=== PATIENT | male | born 1985 | race Caucasian/White ===

== ENCOUNTER 2017-07-01 19:00 | Emergency (ER) | payer SELFPAY ==
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
[2017-07-01 20:11] VITALS: BP 118/68
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
--- NOTE | 2017-07-02 13:33 | Diagnostic Imaging Report ---
IRAIDA MONGE [facility] [address] [facility] [address] [place], [place]. [address] Report Submission Date: Jul 01, 2017 7:49:11 PM CDT Patient Study Name: NIRU FRANKLIN Date: Jul 01, 2017 7:31:41 PM CDT Modality Type: CR Gender: M Description: CHEST : 87 Institution: [facility] Physician: IRAIDA MONGE Examination: PA and lateral chest. History: Evaluate lung oh. Findings: PA lateral chest demonstrate a normal cardiac and mediastinal silhouette. No focal infiltrate. No blunting of the costophrenic margins. Osseous structures are appropriate for age. Bilateral nipple rings. Impression: No acute pulmonary process. Electronically signed on Jul 01, 2017 7:49:11 PM CDT by: Chris PLASENCIA
== END 2017-07-01 20:10 | disposition home or self-care (01) ==
LOC: ED 19:00
DX: M25.512 Pain in left shoulder (principal); V89.2XXA Person injured in unspecified motor-vehicle accident, traffic, initial encounter
CPT/HCPCS: 71020; 73030; 99283

== ENCOUNTER 2017-07-06 19:06 | Emergency (ER) | payer SELFPAY ==
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
[2017-07-06 20:22] VITALS: BP 132/79
--- NOTE | 2017-07-07 05:33 | Diagnostic Imaging Report ---
LISSETTE TUTTLE [facility] [address] [address] Report Submission Date: Jul 06, 2017 8:01:11 PM CDT Patient Study Name: NIRU FRANKLIN Date: Jul 06, 2017 7:47:43 PM CDT Modality Type: CR Gender: M Description: SHOULDER : 87 Institution: [facility] Physician: LISSETTE TUTTLE Examination: Plain film shoulder History: Discomfort Comparison exams: None provided Findings: 2 views of the shoulder demonstrate normal cortical margins. No evidence for fracture or dislocation. No soft tissue abnormality Impression: No acute osseous process. Electronically signed on Jul 06, 2017 8:01:11 PM CDT by: Chris PLASENCIA
== END 2017-07-06 20:20 ==
LOC: ED 19:06
DX: M25.511 Pain in right shoulder (principal)
CPT/HCPCS: 73030; 99283

== ENCOUNTER 2017-08-07 16:08 | Emergency (ER) | payer SELFPAY ==
[2017-08-07 16:47] LABS: BASOPHILS % 0.6 (0.0-1.5); EOSINOPHILS % 1.7 % (0.0-6.8); MEAN CORPUSCULAR HEMOGLOBIN 29.2 pg (28.0-34.0); MEAN CORPUSCULAR VOLUME 85.2 fl (80.0-100.0); MONOCYTES % 3.2 % (0.0-11.0)
[2017-08-07] MEDS ORDERED: INSULIN REGULAR, HUMAN 100 UNIT/ML 3ML VIAL IV ONE (16:50)
[2017-08-07] MEDS ORDERED: 0.9 % SODIUM CHLORIDE 1,000 ML IV ONE ×2 (16:50→16:51)
[2017-08-07] MEDS ORDERED: INSULIN REGULAR, HUMAN 100 UNIT/ML 3ML VIAL ONE (16:51)
[2017-08-07 16:57] LABS: eGFR (African) > 60; eGFR (Non-African) > 60
--- NOTE | 2017-08-07 17:07 | ED Physician Documentation ---
General Adult - HISTORIAN Historian: patient, friend - HPI Stated Complaint: Urinary Frequency Chief Complaint: Male Genitourinary Problems Additional Information: dysuria frequency xs soda occ dizziness Onset: days ago (4-5) Timing: worse Severity: moderate Further Comments: yes (prev tx diabetes--pcp took pt off metformin) - ROS CONST: weakness EYES/ENT: denies: problems with vision (slight blur at times) CVS/RESP: none GI/: other (frfequent urination) MS/SKIN/LYMPH: none NEURO/PSYCH: dizziness. denies: headache, fainting, difficulty walking, difficulty with speech - PAST HX Past History: other (DM LO THRYOID ASTHMA) Surgeries/Procedures: cholecystectomy, other (vasectomy) Allergies/Adverse Reactions: Allergies Allergy/AdvReac Type Severity Reaction Status Date / Time No Known Allergies Allergy Verified 08/07/17 16:22 Home Medications: Ambulatory Orders Medication Instructions Recorded Levothyroxine Sodium [Synthroid] 150 mcg PO DAILY 07/06/17 - SOCIAL HX Smoking History: non-smoker Alcohol Use: none Drug Use: none - FAMILY HX Family History: No - VITAL SIGNS Vital Signs: Vital Signs Temp Pulse Resp BP Pulse Ox 97.1 F L 91 H 18 138/65 97 08/07/17 16:10 08/07/17 16:10 08/07/17 16:10 08/07/17 16:10 08/07/17 16:10 - REVIEWED ASSESSMENTS Nursing Assessment Reviewed: Yes Vitals Reviewed: Yes ED Results Lab/Radiology - Lab Results Lab Results: Lab Results 08/07/17 08/07/17 16:40 16:40 WBC 9.70 K/ul K/ul (4.00-12.00) RBC 4.64 M/ul M/ul (3.90-5.20) Hgb 13.5 g/dL g/dL (12.0-18.0) Hct 39.5 % % (37.0-53.0) MCV 85.2 fl fl (80.0-100.0) MCH 29.2 pg pg (28.0-34.0) MCHC 34.3 g/dL g/dL (30.0-36.0) RDW 12.8 % % (11.3-14.3) Plt Count 199 K/mm3 K/mm3 (130-400) Neut % (Auto) 72.6 % % (39.0-79.0) Lymph % (Auto) 21.0 % % (16.0-50.0) [place] % (Auto) 3.2 % % (0.0-11.0) Eos % (Auto) 1.7 % % (0.0-6.8) Baso % (Auto) 0.6 (0.0-1.5) Neut # (Auto) 7.0 # k/uL # k/uL (1.4-7.7) Lymph # (Auto) 2.0 # k/uL # k/uL (0.6-4.0) [place] # (Auto) 0.3 # k/uL # k/uL (0.0-0.9) Eos # (Auto) 0.2 # k/uL # k/uL (0.0-0.6) Baso # (Auto) 0.1 # k/uL # k/uL (0.0-0.5) Reactive Lymphs % 0.9 % % (0.0-5.0) Reactive Lymphs # 0.1 # k/uL # k/uL (0.0-0.8) Sodium 133 mmol/L L mmol/L (136-145) Potassium 4.1 mmol/L mmol/L (3.5-5.1) Chloride 99 mmol/L mmol/L (98-107) Carbon Dioxide 23 mmol/L mmol/L (22-30) BUN 10 mg/dL mg/dL (9-20) Creatinine 0.80 mg/dL mg/dL (0.66-1.25) Estimated Creat Clear 242 Est GFR ( Amer) > 60 (60 - ) Est GFR (Non-Af Amer) > 60 (60 - ) Glucose 462 mg/dL H mg/dL (74-106) Calcium 8.8 mg/dL mg/dL (8.4-10.2) Total Bilirubin 0.3 mg/dL mg/dL (0.2-1.3) AST 33 U/L U/L (15-46) ALT 57 U/L U/L (13-69) Alkaline Phosphatase 100 U/L U/L (38-126) Total Protein 7.3 g/dL g/dL (6.3-8.2) Albumin 4.1 g/dL g/dL (3.5-5.0) - Orders Orders: ED Orders Category Date Time Status Place IV Lock 1T Care 08/07/17 16:37 Active CBC/PLATELET/DIFF Routine Lab 08/07/17 16:40 Completed CMP Routine Lab 08/07/17 16:40 Completed GLYCOHEMOGLOBIN A1C with eAG Routine Lab 08/07/17 16:41 Received UA [URINALYSIS] Routine Lab 08/07/17 Ordered VENOUS BLOOD GAS Stat Lab 08/07/17 Ordered 0.9 % Sodium Chloride [Normal Saline] 1,000 ml Med 08/07/17 16:51 Discontinued IV .STK-MED 0.9 % Sodium Chloride [Normal Saline] 1,000 ml Med 08/07/17 16:50 Active IV Q1H Chem Sticks Med 08/07/17 17:00 Ordered 1 each MC CHEMQ Insulin Regular, Human [Humulin R] Med 08/07/17 16:50 Discontinued 10 unit IV NOW ONE Insulin Regular, Human [Humulin R] Med 08/07/17 16:51 Discontinued 300 unit .ROUTE .STK-MED ONE General Adult Physical Exam - PHYSICAL EXAM GENERAL APPEARANCE: mild distress EENT: eye inspection normal (sees 20/70eye chart) NECK: normal inspection RESPIRATORY: no resp distress, chest non-tender, breath sounds normal CVS: reg rate & rhythm, heart sounds normal ABDOMEN: soft, non-tender, distended BACK: normal inspection EXTREMITIES: non-tender, edema NEURO: oriented X3, motor nml, sensation nml, mood/affect nml Discharge Clincal Impression: diabetes mellitus-uncontrolled Referrals: Primary Doctor,No [Primary Care Provider] - 2 Days Comments: pt to become EXPERT in diabetic nutrition-take meds establish w/ good diabetic counsellor Condition: Good Disposition: HOME, SELF-CARE Decision to Admit: NO Decision Time: 17:43
[2017-08-07 17:36] LABS: APPEARANCE,URINE CLEAR (CLEAR); COLOR,URINE YELLOW (YELLOW)
[2017-08-07 17:37] LABS: OCCULT BLOOD,URINE TRACE-INTACT (NEGATIVE); PH URINE 5.5 (5.0 - 8.0); UROBILINOGEN URINE 0.2 Eu (0.2-1.0)
[2017-08-07 18:09] VITALS: BP 144/88
== END 2017-08-07 17:51 | disposition home or self-care (01) ==
LOC: ED 16:08
DX: E11.649 Type 2 diabetes mellitus with hypoglycemia without coma (principal)
CPT/HCPCS: 80053; 81002; 83036; 85025; 96360; 99283; J7030; S1016